=== PATIENT | male | born 1980 | race Caucasian/White ===

== ENCOUNTER 2016-09-09 22:05 | Inpatient (IN) | payer OTHER ==
--- NOTE | 2016-09-10 00:09 | EDPHY ---
H & P Stated Complaint: SI, hurt feet Source: Patient Exam Limitations: No limitations - Personal History Current Tetanus/Diphtheria Vaccine: Unsure Current Tetanus Diphtheria and Acellular Pertussis (TDAP): Unsure - Medical/Surgical History Hx Asthma: No Hx Chronic Respiratory Disease: No Hx Diabetes: No Hx Cardiac Disease: No Hx Renal Disease: No Hx Cirrhosis: No Hx Alcoholism: No Hx HIV/AIDS: No Hx Splenectomy or Spleen Trauma: No Other PMH: Lumbar L5-S1 fusion, DDD, HTN, KERI, hernia surgery - Social History Smoking Status: Current every day smoker Time Seen by Provider: 09/09/16 23:51 HPI/ROS: HPI The patient presents with suicidal ideation with plan to [place] the [place] and possibly jump off a high [place]. He has been feeling suicidal for the last few days and called the mental health crisis line and was advised to come to the emergency room. He says he recently lost his housing and has been staying with his parents up until for 5 days ago when he began walking around. He has been walking for most of the day for the last several days and now complains of bilateral foot pain. He has not felt suicidal before. He does not have a history of mental illness. He has never been to a psychiatric hospital.. REVIEW OF SYSTEMS Constitutional: No fever, no chills. Eyes: No discharge. ENT: No sore throat. Cardiovascular: No chest pain, no palpitations. Respiratory: No cough, no shortness of breath. Gastrointestinal: No abdominal pain, no vomiting. Genitourinary: No hematuria. Musculoskeletal: No back pain. Skin: No rashes. Neurological: No headache. PMHx: No diabetes, no hypertension Soc Hx: Parents live in [place] FHx: PHYSICAL General Appearance: Alert, no distress Eyes: Pupils equal and round no pallor or injection ENT, Mouth: Mucous membranes moist Respiratory: There are no retractions, lungs are clear to auscultation Cardiovascular: Regular rate and rhythm Gastrointestinal: Abdomen is soft and non-tender, no masses, bowel sounds normal Neurological: A&O, moves all extremities Skin: Warm and dry, plantar surfaces of both feet are erythematous with multiple blisters present, tender to palpation, no warmth or fluctuance Musculoskeletal: Neck is supple non tender Extremities: symmetrical, full range of motion Psychiatric: Patient is oriented X 3, there is no agitation (Riguzzi,Sintia) Constitutional: Initial Vital Signs Temperature (C) 36.5 C 09/09/16 22:17 Heart Rate 70 09/09/16 22:17 Respiratory Rate 16 09/09/16 22:17 Blood Pressure 155/114 H 09/09/16 22:17 O2 Sat (%) 98 09/09/16 22:17 O2 Delivery Mode Room Air Allergies/Adverse Reactions: Penicillins Allergy (Verified 09/09/16 22:16) Sulfa (Sulfonamide Antibiotics) Allergy (Verified 09/09/16 22:16) tramadol Allergy (Verified 09/09/16 22:16) Home Medications: Medication Instructions Recorded NK [No Known Home Meds] 09/09/16 Medical Decision Making Differential Diagnosis: This is a 36-year-old man who presents feeling suicidal in the setting of multiple social stressors. He does have a plan to jump off of a eliezer. He has never felt suicidal before. Differential diagnosis includes depression with suicidal ideation, polysubstance abuse, homelessness. (Sintia Gomez) Other Provider: I assumed care of the patient at 7 o'clock in the morning. The patient reports to me that he still has ongoing suicidal ideation and cannot contract for safety. The patient has been placed on an M1 psychiatric hold. I have requested psychiatric evaluation. He has been medically cleared at this point time. Update at 10:00 a.m.: The patient has been accepted for inpatient psychiatric hospitalization at [facility] by Dr. Enrique Alvarado. I have filled out the EMTALA transfer form. (Jan Olvera) - Data Points Laboratory Results: Laboratory Results 09/10/16 00:15 09/10/16 00:25 09/10/16 09/10/16 09/10/16 06:15 00:25 00:15 WBC 7.66 10^3/uL 10^3/uL (3.80-9.50) RBC 4.81 10^6/uL 10^6/uL (4.40-6.38) Hgb 14.8 g/dL g/dL (13.7-17.5) Hct 41.9 % % (40.0-51.0) MCV 87.1 fL fL (81.5-99.8) MCH 30.8 pg pg (27.9-34.1) MCHC 35.3 g/dL g/dL (32.4-36.7) RDW 13.1 % % (11.5-15.2) Plt Count 421 10^3/uL H 10^3/uL (150-400) MPV 9.3 fL fL (8.7-11.7) Neut % (Auto) 48.4 % % (39.3-74.2) Lymph % (Auto) 36.4 % % (15.0-45.0) [place] % (Auto) 9.1 % % (4.5-13.0) Eos % (Auto) 4.8 % % (0.6-7.6) Baso % (Auto) 0.9 % % (0.3-1.7) Nucleat RBC Rel Count 0.0 % % (0.0-0.2) Absolute Neuts (auto) 3.70 10^3/uL 10^3/uL (1.70-6.50) Absolute Lymphs (auto) 2.79 10^3/uL 10^3/uL (1.00-3.00) Absolute Monos (auto) 0.70 10^3/uL 10^3/uL (0.30-0.80) Absolute Eos (auto) 0.37 10^3/uL 10^3/uL (0.03-0.40) Absolute Basos (auto) 0.07 10^3/uL 10^3/uL (0.02-0.10) Absolute Nucleated RBC 0.00 10^3/uL 10^3/uL (0-0.01) Immature Gran % 0.4 % % (0.0-1.1) Immature Gran # 0.03 10^3/uL 10^3/uL (0.00-0.10) Sodium 138 mEq/L mEq/L (134-144) Potassium 3.7 mEq/L mEq/L (3.5-5.2) Chloride 107 mEq/L mEq/L (97-110) Carbon Dioxide 19 mEq/l L mEq/l (22-31) Anion Gap 12 mEq/L mEq/L (8-16) BUN 21 mg/dL mg/dL (7-23) Creatinine 0.9 mg/dL mg/dL (0.7-1.3) Estimated GFR > 60 Glucose 75 mg/dL mg/dL (70-100) Calcium 9.2 mg/dL mg/dL (8.5-10.4) Total Bilirubin 0.6 mg/dL mg/dL (0.1-1.4) AST 63 IU/L H IU/L (17-59) ALT 52 IU/L IU/L (21-72) Alkaline Phosphatase 94 IU/L IU/L (38-126) Total Protein 6.5 g/dL g/dL (6.3-8.2) Albumin 3.8 g/dL g/dL (3.5-5.0) Urine Opiates Screen NEGATIVE (NEGATIVE) Urine Barbiturates NEGATIVE (NEGATIVE) Ur Phencyclidine Scrn NEGATIVE (NEGATIVE) Ur Amphetamine Screen NEGATIVE (NEGATIVE) U Benzodiazepines Scrn NEGATIVE (NEGATIVE) Urine Cocaine Screen NEGATIVE (NEGATIVE) U Marijuana (THC) Screen NEGATIVE (NEGATIVE) Ethyl Alcohol < 10 mg/dL mg/dL (0-10) Departure - Departure Disposition: [facility] IP Clinical Impression: Suicidal ideation, Severe major depression Condition: Good Referrals: [facility] [Other] - As per Instructions
[2016-09-10 00:45] LABS: % IMMATURE GRANULYOCYTES 0.4 % (0.0-1.1); ABSOLUTE IMMATURE GRANULOCYTES 0.03 10^3/uL (0.00-0.10); ADD DIFF? NO; ADD MORPH? NO; ADD SCAN? NO; ATYPICAL LYMPHOCYTE FLAG 70 (0-99); FRAGMENT RBC FLAG 0 (0-99); HEMATOCRIT 41.9 % (40.0-51.0); HEMOGLOBIN 14.8 g/dL (13.7-17.5); LEFT SHIFT FLG 0 (0-99); LIPEMIA HEMOLYSIS FLAG 90 (0-99); MEAN CELL HEMOGLOBIN 30.8 pg (27.9-34.1); MEAN CELL HEMOGLOBIN CONCENTR. 35.3 g/dL (32.4-36.7); MEAN CELL VOLUME 87.1 fL (81.5-99.8); MEAN PLATELET VOLUME 9.3 fL (8.7-11.7); PLATELET CLUMPS FLAG 10 (0-99); PLATELET COUNT 421 10^3/uL (150-400); RED BLOOD CELL COUNT 4.81 10^6/uL (4.40-6.38); RED CELL DISTRIBUTION WIDTH 13.1 % (11.5-15.2)
[2016-09-10 01:08] LABS: ALANINE AMINOTRANSFERASE 52 IU/L (21-72); ALBUMIN 3.8 g/dL (3.5-5.0); ALKALINE PHOSPHATASE 94 IU/L (38-126); ANION GAP 12 mEq/L (8-16); ASPARTATE AMINOTRANSFERASE 63 IU/L (17-59); BILIRUBIN,TOTAL 0.6 mg/dL (0.1-1.4); CALCIUM 9.2 mg/dL (8.5-10.4); CARBON DIOXIDE 19 mEq/l (22-31); CHLORIDE 107 mEq/L (97-110); CREATININE 0.9 mg/dL (0.7-1.3); ETHANOL SERUM < 10 mg/dL (0-10); GLOMERULAR FILTRATION RATE > 60; GLUCOSE 75 mg/dL (70-100); POTASSIUM 3.7 mEq/L (3.5-5.2); SODIUM 138 mEq/L (134-144); TOTAL PROTEIN 6.5 g/dL (6.3-8.2)
[2016-09-10 16:05] VITALS: O2SAT 98
[2016-09-10] MEDS ORDERED: LORazepam 0.5 MG TAB PO PRN (21:13)
[2016-09-10] MEDS ORDERED: ACETAMINOPHEN 325 MG TAB PO PRN (21:13)
[2016-09-10] MEDS ORDERED: NICOTINE POLACRILEX 2 MG GUM B PRN (21:13)
[2016-09-10] MEDS ORDERED: MAG HYDROX/AL HYDROX/SIMETH 30 ML UDCUP PO PRN (21:13)
[2016-09-10] MEDS ORDERED: MAGNESIUM HYDROXIDE 30 ML UDCUP PO PRN (21:13)
[2016-09-10] MEDS ORDERED: OLANZapine DISINTEGR 10 MG TAB PO PRN (21:13)
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
[2016-09-11] MEDS: QUEtiapine FUMARATE 25 MG TAB PO PRN (19:07)
[2016-09-11] MEDS: QUEtiapine FUMARATE 50 MG TAB PO SCH (20:37)
[2016-09-11] MEDS: MIRTAZAPINE 15 MG TAB PO SCH (20:37)
[2016-09-12] MEDS: QUEtiapine FUMARATE 25 MG TAB PO PRN (14:56)
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
[2016-09-12] MEDS: QUEtiapine FUMARATE 50 MG TAB PO SCH (20:48)
[2016-09-12] MEDS: MIRTAZAPINE 15 MG TAB PO SCH (20:48)
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
[2016-09-13 05:01] VITALS: BP 149/98; PULSE 58; RESP 14; TEMP 97.8
--- NOTE | 2016-09-13 10:36 | BAPA ---
[f rep st] ADMISSION PSYCHIATRIC ASSESSMENT duplicate MTDD
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
[2016-09-13] MEDS ORDERED: MIRTAZAPINE 15 MG TAB PO SCH (21:00)
== END 2016-09-13 18:55 | disposition home or self-care (01) | DRG 885 ==
LOC: UNDOADMIN 09-10 13:15 → BBEH 09-10 13:15
PROVIDERS: ADMIT Psychiatry & Neurology Psychiatry; ATTEND Psychiatry & Neurology Psychiatry
DX: F33.2 Major depressive disorder, recurrent severe without psychotic features (principal); F43.10 Post-traumatic stress disorder, unspecified; I10 Essential (primary) hypertension; G47.33 Obstructive sleep apnea (adult) (pediatric); Z98.1 Arthrodesis status
CPT/HCPCS: 80305; G0472; G0480